=== PATIENT | male | born 1990 | race Caucasian/White ===

== ENCOUNTER 2017-06-06 19:08 | Emergency (ER) | payer BC ==
--- NOTE | 2017-06-06 19:48 | EDM.PDOC ---
ED HPI GENERAL MEDICAL PROBLEM - General Chief Complaint: Laceration Stated Complaint: LACERATION LT THUMB Time Seen by Provider: 06/06/17 19:25 Source of Information: Reports: Patient History Limitations: Reports: No Limitations - History of Present Illness INITIAL COMMENTS - FREE TEXT/NARRATIVE: History of present illness: [27-year-old male comes in status post traumatic laceration to left thumb. Patient was using a saw to cut subflooring when he did a cross cut onto his left thumb almost severing the pad.] Review of systems: As per history of present illness and below otherwise all systems reviewed and negative. Past medical history: As per history of present illness and as reviewed below otherwise noncontributory. Surgical history: As per history of present illness and as reviewed below otherwise noncontributory. Social history: No reported history of drug or alcohol abuse. Family history: As per history of present illness and as reviewed below otherwise noncontributory. Physical exam: HEENT: Atraumatic, normocephalic, pupils reactive, negative for conjunctival pallor or scleral icterus, mucous membranes moist, throat clear, neck supple, nontender, trachea midline. Lungs: Clear to auscultation, breath sounds equal bilaterally, chest nontender. Heart: S1S2, regular, negative for clicks, rubs, or JVD. Abdomen: Soft, nondistended, nontender. Negative for masses or hepatosplenomegaly. Negative for costovertebral tenderness. Pelvis: Stable nontender. Genitourinary: Deferred. Rectal: Deferred. Extremities: Left hand with thumb laceration. Near circumferential flap of pad region of thumb. Neurovascular intact. Patient with good pulses and good blood flow to thumb minimal amount of duskiness of pad Neuro: Awake, alert, oriented. Cranial nerves II through XII unremarkable. Cerebellum unremarkable. Motor and sensory unremarkable throughout. Exam nonfocal. Procedure note: Thumb cleaned in the usual fashion with 1% lidocaine injected approximately 3 ml. into the left thumb with good anesthesia achieved. 7 interrupted sutures using 4.0 Ethilon to approximate the edges with good hemostasis obtained. Hand cleaned, bacitracin applied with subsequent Vaseline gauze and then Telfa with tube gauze over the thumb. Biotics prescribed secondary to nature of injury Diagnostics: [X-ray of thumb] Therapeutics: [Lidocaine, Dilaudid, tetanus] Impression: [Thumb laceration] Plan: [Thumb laceration stabilized with a referral to hand surgery] Definitive disposition and diagnosis as appropriate pending reevaluation and review of above. left thumb Pain Score (Numeric/FACES): 9 - Related Data Allergies Allergy/AdvReac Type Severity Reaction Status Date / Time amoxicillin [Amoxicillin] Allergy unknown Verified 06/06/17 19:21 cefaclor [From Ceclor] Allergy unknown Verified 06/06/17 19:21 Penicillins Allergy unknown Verified 06/06/17 19:21 Home Meds: Home Meds . [No Known Home Meds] 09/03/13 [History] Past Medical History HEENT History: Reports: None Cardiovascular History: Reports: None Respiratory History: Reports: None Gastrointestinal History: Reports: None Genitourinary History: Reports: None Musculoskeletal History: Reports: None Neurological History: Reports: None Psychiatric History: Reports: None Endocrine/Metabolic History: Reports: None Hematologic History: Reports: None Immunologic History: Reports: None Oncologic (Cancer) History: Reports: None Dermatologic History: Reports: None - Infectious Disease History Infectious Disease History: Reports: None - Past Surgical History Head Surgeries/Procedures: Reports: None HEENT Surgical History: Reports: Adenoidectomy, Tonsillectomy Social & Family History - Family History Family Medical History: Noncontributory - Tobacco Use Smoking Status *Q: Never Smoker - Caffeine Use Caffeine Use: Reports: Soda - Alcohol Use Days Per Week of Alcohol Use: 0 - Recreational Drug Use Recreational Drug Use: No ED ROS GENERAL - Review of Systems Review Of Systems: See Below (History of present illness) ED EXAM, SKIN/RASH Exam: See Below (See history of present illness) Course - Vital Signs Last Recorded V/S: Last Vital Signs Temp 36.9 C 06/06/17 19:21 Pulse 78 06/06/17 19:21 Resp 18 06/06/17 19:21 BP 151/70 H 06/06/17 19:21 Pulse Ox 98 06/06/17 19:21 - Orders/Labs/Meds Orders: Active Orders 24 hr Category Date Time Status Vaccines to be Administered [RC] PER UNIT ROUTINE Care 06/06/17 20:35 Active Fingers Thumb Lt FA [CR] Stat Exams 06/06/17 20:29 Ordered Meds: Medications Discontinued Medications Generic Name Dose Route Start Last Admin Trade Name Freq PRN Reason Stop Dose Admin Diphtheria/Tetanus/Acell Pertussis 0.5 ml 06/06/17 20:35 Adacel IM 06/06/17 20:36 .ONCE ONE Hydromorphone HCl 2 mg 06/06/17 21:07 Dilaudid IM 06/06/17 21:08 ONETIME ONE Lidocaine/Epinephrine 20 ml 06/06/17 21:10 Xylocaine 1% With Epinephrine 1:100,000 INJECT 06/06/17 21:11 ONETIME ONE Departure - Departure Time of Disposition: 22:03 Disposition: Home, Self-Care 01 Condition: Good Clinical Impression: Laceration of thumb - Discharge Information Instructions: Laceration Care, Adult, [id number], Stitches, Sriram, or Adhesive Wound Closure, [id number] Referrals: Jose Grady MD [Primary Care Provider] - Forms: ED Department Discharge Additional Instructions: The following information is given to patients seen in the emergency department who are being discharged to home. This information is to outline your options for follow-up care. We provide all patients seen in our emergency department with a follow-up referral. The need for follow-up, as well as the timing and circumstances, are variable depending upon the specifics of your emergency department visit. If you don't have a primary care physician on staff, we will provide you with a referral. We always advise you to contact your personal physician following an emergency department visit to inform them of the circumstance of the visit and for follow-up with them and/or the need for any referrals to a consulting specialist. The emergency department will also refer you to a specialist when appropriate. This referral assures that you have the opportunity for follow-up care with a specialist. All of these measure are taken in an effort to provide you with optimal care, which includes your follow-up. Under all circumstances we always encourage you to contact your private physician who remains a resource for coordinating your care. When calling for follow-up care, please make the office aware that this follow-up is from your recent emergency room visit. If for any reason you are refused follow-up, please contact the [facility] Emergency Department at and asked to speak to the emergency department charge nurse. Take antibiotics as directed Keep hand clean and dry as discussed Follow-up with hand surgeon as discussed [facility] - [facility] Professional Building [address] [place] [address], [address] [place] [address]
[2017-06-06] MEDS ORDERED: Diphtheria,Pertussis(Acell),Tetanus Vaccine 0.5 ML Syringe IM ONE (20:35)
[2017-06-06] MEDS ORDERED: HYDROmorphone 2 MG/ML SDV IM ONE (20:49)
[2017-06-06] MEDS ORDERED: HYDROmorphone 1 MG/ML Syringe IM ONE (21:07)
[2017-06-06] MEDS ORDERED: Lidocaine 1% with EPINEPHrine 1:100,000 20 ML MDV INJECT ONE (21:10)
[2017-06-06] MEDS ORDERED: Lidocaine 1% 20 ML MDV ONE (21:17)
[2017-06-06] MEDS ORDERED: Lidocaine 1% 20 ML MDV INJECT ONE (21:21)
[2017-06-06] MEDS ORDERED: Bacitracin Oint 1 GM U/D Packet TOP ONE (21:56)
--- NOTE | 2017-06-08 10:46 | CR ---
EXAM DATE: 06/06/17 PATIENT'S AGE: 27 Patient: JIM GONSALES Facility: [place], [place] Site . Site : [id number] Study: XRay Extremity Left [id number] thumb-06/06/2017 8:56:45 PM Ordering Physician: Doctor Mendosa Final Report: INDICATION: Trauma to the left thumb. TECHNIQUE: Finger radiographs 3 views COMPARISON: None FINDINGS: Overlying bandage material at distal margin of left 1st digit. No radiopaque soft tissue foreign body. Alignment within normal limits. No fracture identified. Apparent soft tissue injury at the distal margin of the left thumb. IMPRESSION: 1. No acute osseous injuries are identified. 2. Soft tissue injury, distal margin of left thumb. Dictated by Lino Cao MD @ 06/06/2017 9:10:57 PM Dictated by: Lino Cao MD @ 06/06/2017 21:11:00 (Electronic Signature) Report Signed by Proxy. BERTA
== END 2017-06-06 22:19 | disposition home or self-care (01) ==
LOC: MW.ED 19:08
DX: S61.012A Laceration without foreign body of left thumb without damage to nail, initial encounter (principal); W45.8XXA Other foreign body or object entering through skin, initial encounter; Z23 Encounter for immunization; Z88.1 Allergy status to other antibiotic agents
CPT/HCPCS: 12001; 12002; 73140; 90471; 90715; 96372; 99283; J1170; 99282

== ENCOUNTER 2019-09-24 16:34 | Emergency (ER) | payer BC ==
--- NOTE | 2019-09-24 17:08 | EDM.PDOC ---
ED HPI GENERAL MEDICAL PROBLEM - General Chief Complaint: Upper Extremity Injury/Pain Stated Complaint: NAIL LODGED INTO LEFT WRIST Time Seen by Provider: 09/24/19 16:50 Source of Information: Reports: Patient History Limitations: Reports: No Limitations - History of Present Illness INITIAL COMMENTS - FREE TEXT/NARRATIVE: This 29 year old male states while working he accidentally shot a nail into his left wrist area. He states that the nail was a flexible 18 gauge blunt tip that was shot through his left wrist area under pressure. He complains of pain of the left wrist in the inner side (radial side) with associated numbness in his thumb, index finger and middle finger. He states that he can only move his fingers a little bit. He states that this happen approximately 30 prior to arrival to the ED. His last meal was cheese crackers one hour ago. He states that he has an allergy to penicillin type medications but does not recall the reaction that he has. left wrist Pain Score (Numeric/FACES): 3 - Related Data Allergies Allergy/AdvReac Type Severity Reaction Status Date / Time amoxicillin [Amoxicillin] Allergy unknown Verified 09/24/19 16:46 cefaclor [From Ceclor] Allergy unknown Verified 09/24/19 16:46 Penicillins Allergy unknown Verified 09/24/19 16:46 Home Meds: Home Meds Pantoprazole [ProTONIX] 1 dose PO ASDIRECTED 09/24/19 [History] Past Medical History HEENT History: Reports: None Cardiovascular History: Reports: None Respiratory History: Reports: None Gastrointestinal History: Reports: None Genitourinary History: Reports: None Musculoskeletal History: Reports: None Neurological History: Reports: None Psychiatric History: Reports: None Endocrine/Metabolic History: Reports: None Hematologic History: Reports: None Immunologic History: Reports: None Oncologic (Cancer) History: Reports: None Dermatologic History: Reports: None - Infectious Disease History Infectious Disease History: Reports: Chicken Pox - Past Surgical History Head Surgeries/Procedures: Reports: None HEENT Surgical History: Reports: Adenoidectomy, Tonsillectomy Cardiovascular Surgical History: Reports: None Respiratory Surgical History: Reports: None GI Surgical History: Reports: None Male Surgical History: Reports: None Endocrine Surgical History: Reports: None Neurological Surgical History: Reports: None Musculoskeletal Surgical History: Reports: None Oncologic Surgical History: Reports: None Dermatological Surgical History: Reports: None Social & Family History - Family History Family Medical History: Noncontributory - Tobacco Use Smoking Status *Q: Never Smoker Second Hand Smoke Exposure: No - Caffeine Use Caffeine Use: Reports: Soda - Recreational Drug Use Recreational Drug Use: No Review of Systems - Review of Systems Review Of Systems: See Below Constitutional: Reports: No Symptoms Eyes: Reports: No Symptoms Ears: Reports: No Symptoms Nose: Reports: No Symptoms Mouth/Throat: Reports: No Symptoms Respiratory: Reports: No Symptoms Cardiovascular: Reports: No Symptoms GI/Abdominal: Reports: No Symptoms Genitourinary: Reports: No Symptoms Musculoskeletal: Reports: Hand Pain (left hand), Other (pain in left wrist area with numbness and weakness of his thumb through middle finger.) Skin: Reports: No Symptoms Neurological: Reports: Other (as noted above.) ED EXAM, GENERAL - Physical Exam Exam: See Below Exam Limited By: No Limitations General Appearance: Alert, WD/WN, No Apparent Distress Head: Atraumatic, Normocephalic Neck: Normal Inspection, Supple Respiratory/Chest: No Respiratory Distress, Lungs Clear, Normal Breath Sounds Cardiovascular: Normal Peripheral Pulses, No Edema, No Murmur, Tachycardia Peripheral Pulses: 3+: Dorsalis Pedis (L), 4+: Radial (L), Radial (R), Dorsalis Pedis (R) GI/Abdominal: Normal Bowel Sounds, Soft, Non-Tender (Male) Exam: Deferred Rectal (Males) Exam: Deferred Back Exam: Normal Inspection, Full Range of Motion Extremities: Normal Capillary Refill, Other (There is a small pinpoint wound just lateral to the radial artery. It appears to be a foreign body consistent with a imbeded nail. Excellent capillary refill. Decrease sensation along the entire thumb, left middle finger and the radial side of the index finger. The patient cannot open his hand fully which could be due to pain or nerve injury.) . No: Pallor, Redness Neurological: Alert, Oriented (times 4), CN II-XII Intact, Normal Cognition, Normal Reflexes, No Motor/Sensory Deficits Psychiatric: Normal Affect, Normal Mood Skin Exam: Warm, Dry, Intact, Normal Color, No Rash Lymphatic: No Adenopathy Course - Vital Signs Text/Narrative:: I talked with Dr. Wallace at approximately 7:58PM. He has accepted the patient in transfer. The patient is to go to the ED at [facility] and let the ED know that Dr. Wallace will see him in consult and possible surgery. The patient is aware of the transfer and agrees. His will drive him over to [place] after he receives his Clindamycin 600mg IV. Last Recorded V/S: Last Vital Signs Temp 95.7 F L 09/24/19 16:47 Pulse 121 H 09/24/19 16:47 Resp 18 09/24/19 16:47 BP 160/105 H 09/24/19 16:47 Pulse Ox 97 09/24/19 16:47 Departure - Departure Time of Disposition: 20:16 Disposition: DC/Tfer to [facility] 02 Condition: Good Clinical Impression: Penetrating foreign body of skin of left wrist Qualifiers: Encounter type: initial encounter Qualified Code(s): S60.852A - Superficial foreign body of left wrist, initial encounter - Discharge Information *PRESCRIPTION DRUG MONITORING PROGRAM REVIEWED*: Yes *COPY OF PRESCRIPTION DRUG MONITORING REPORT IN PATIENT KAUSHIK: Yes Instructions: Cast or Splint Care, Adult, [id number] Referrals: Jose Grady MD [Primary Care Provider] - Forms: ED Department Discharge Sepsis Event Note - Evaluation Sepsis Screening Result: No Definite Risk - Focused Exam Vital Signs: Vital Signs Temp Pulse Resp BP Pulse Ox 09/24/19 16:47 95.7 F L 121 H 18 160/105 H 97 Date Exam was Performed: 09/24/19 Time Exam was Performed: 19:16
--- NOTE | 2019-09-24 17:49 | CR ---
Left forearm: 2 views left forearm were obtained. Comparison: No previous forearm study. Metallic nail is projected within the left wrist. No acute fracture or other abnormality is appreciated. Impression: 1. Metallic nail is projected within the left wrist. 2. Left forearm study is otherwise unremarkable. Diagnostic code #3 This report was dictated in MDT
--- NOTE | 2019-09-24 17:49 | CR ---
Left wrist: 3 views left wrist were obtained. Comparison: No prior wrist exam is available. Metallic nail is noted within the wrist. No discrete fracture is appreciated. Soft tissue swelling is seen. No additional abnormality is noted. Impression: 1. Metallic nail within the wrist. No discrete fracture is appreciated. Diagnostic code #3 This report was dictated in MDT
[2019-09-24] MEDS ORDERED: Clindamycin Phosphate in D5W 600 MG in Premix Bag 1 BAG IV ONE ×2 (19:47)
== END 2019-09-24 20:57 ==
LOC: MW.ED 16:34
DX: S60.852A Superficial foreign body of left wrist, initial encounter (principal); Z88.1 Allergy status to other antibiotic agents; Z88.0 Allergy status to penicillin; W45.8XXA Other foreign body or object entering through skin, initial encounter
CPT/HCPCS: 29125; 73090; 73110; 96365; 99284; S0077; 99283; J3490

== ENCOUNTER 2023-09-23 08:00 | Day surgery (SDC) | payer OTHER ==
[~2023-09-23 08:00] MED LIST: Lidocaine 2% 5 ML SDV ONE; Ropivacaine 0.5% 5 MG/ML 30 ML SDV ONE; ceFAZolin 2 GM in Sodium Chloride 0.9% 50 ML IV ONE
[2023-09-23] MEDS ORDERED: Midazolam 1 MG/ML 2 ML SDV ONE (08:14)
[2023-09-23] MEDS: Lactated Ringers 1,000 ML IV SCH (08:21)
[2023-09-23] MEDS ORDERED: Albuterol 0.083% 2.5 MG/3 ML Neb Soln NEB PRN (08:33)
[2023-09-23] MEDS ORDERED: droPERidol 5 MG/2 ML SDV IVPUSH PRN (08:33)
[2023-09-23] MEDS ORDERED: Morphine 2 MG/ML SYRINGE IVPUSH PRN (08:33)
[2023-09-23] MEDS ORDERED: HYDROmorphone 1 MG/ML Syringe IVPUSH PRN (08:33)
[2023-09-23] MEDS ORDERED: fentaNYL 50 MCG/ML SDV IVPUSH PRN (08:33)
[2023-09-23] MEDS ORDERED: Naloxone 0.4 MG/ML SDV IVPUSH PRN (08:33)
[2023-09-23] MEDS ORDERED: Metoclopramide 10 MG/2 ML SDV IVPUSH PRN (08:33)
[2023-09-23] MEDS ORDERED: Ondansetron 4 MG/2 ML SDV IVPUSH PRN (08:33)
[2023-09-23] MEDS ORDERED: Bupivacaine 0.25% 30 ML SDV ONE (08:51)
[2023-09-23] MEDS ORDERED: Ondansetron 4 MG/2 ML SDV ONE (08:54)
[2023-09-23] MEDS ORDERED: propofoL 50 ML ONE (08:54)
[2023-09-23] MEDS ORDERED: ceFAZolin 2 GM Vial ONE (09:04)
[2023-09-23] MEDS ORDERED: Ketorolac 30 MG/ML SDV ONE (09:43)
== END 2023-09-23 10:45 | disposition home or self-care (01) ==
LOC: MW.SDS 08:00
PROVIDERS: ATTEND Orthopaedic Surgery
DX: G56.01 Carpal tunnel syndrome, right upper limb (principal); J20.9 Acute bronchitis, unspecified; R53.83 Other fatigue; K21.9 Gastro-esophageal reflux disease without esophagitis; K58.9 Irritable bowel syndrome, unspecified; Z90.89 Acquired absence of other organs; Z98.52 Vasectomy status; Z88.1 Allergy status to other antibiotic agents; Z88.8 Allergy status to other drugs, medicaments and biological substances; Z88.0 Allergy status to penicillin; Z90.49 Acquired absence of other specified parts of digestive tract; Z79.899 Other long term (current) drug therapy
CPT/HCPCS: 64721; J0665; J0690; J1885; J2250; J2405; J2704; J2795; J7120; J3490

== ENCOUNTER 2024-08-22 07:49 | Emergency (ER) | payer OTHER ==
[2024-08-22] MEDS: Sodium Chloride 0.9% 1,000 ML IV ONE (08:15)
[2024-08-22] MEDS: Ondansetron 4 MG/2 ML SDV IVPUSH ONE (08:15)
[2024-08-22] MEDS: Ketorolac 30 MG/ML SDV IVPUSH ONE (08:15)
[2024-08-22 08:24] LABS: BASOPHILS ABSOLUTE AUTO 0.04 K/uL (0.00-0.20); BASOPHILS PERCENT AUTO 0.5 % (0.0-1.0); EOSINOPHILS ABSOLUTE AUTO 0.07 K/uL (0.00-0.45); EOSINOPHILS PERCENT AUTO 0.8 % (0.0-6.0); HEMATOCRIT 44.9 % (42.0-52.0); HEMOGLOBIN 15.4 g/dL (14.0-18.0); IMMATURE GRAN ABSOLUTE AUTO 0.05 K/uL (0.00-0.05); IMMATURE GRAN PERCENT AUTO 0.6 % (0.0-0.4); LYMPHOCYTES ABSOLUTE AUTO 2.74 K/uL (1.00-4.80); LYMPHOCYTES PERCENT AUTO 31.2 % (24.0-44.0); MEAN CORPUSCULAR HGB CONC 34.3 g/dL (32.0-36.0); MEAN CORPUSCULAR VOLUME 90.5 fL (83.0-99.0); MEAN PLATELET VOLUME 10.1 fL (9.4-12.4); MONOCYTES ABSOLUTE AUTO 0.84 K/uL (0.00-0.80); MONOCYTES PERCENT AUTO 9.6 % (0.0-8.0); NEUTROPHILS ABSOLUTE AUTO 5.04 K/uL (1.80-7.70); NEUTROPHILS PERCENT AUTO 57.3 % (41.0-71.0); PLATELET COUNT,PLT 262 K/uL (150-400); RED BLOOD CELL COUNT 4.96 M/uL (4.52-5.90); WHITE BLOOD CELL COUNT,WBC 8.78 K/uL (3.9-11.3)
[2024-08-22 08:51] LABS: A/G RATIO 1.3 (0.9-1.6); BILIRUBIN TOTAL 0.8 mg/dL (0.2-1.0); CALCIUM 9.2 mg/dL (8.5-10.1); CREATININE 1.3 mg/dL (0.8-1.3); EST CRCL DRUG DOSING (CG) 83.67 mL/min; PROTEIN TOTAL,TP 7.2 g/dL (6.4-8.2)
[2024-08-22] MEDS: Morphine 4 MG/ML Syringe IVPUSH ONE (08:54)
[2024-08-22 09:19] LABS: APPEARANCE,URINE SLT CLOUDY; BILIRUBIN,URINE NEGATIVE (NEGATIVE); COLOR,URINE YELLOW; GLUCOSE,URINE NEGATIVE (NEGATIVE); KETONES,URINE TRACE mg/dL (NEGATIVE); LEUKOCYTE ESTERASE,URINE NEGATIVE (NEGATIVE); NITRITE,URINE NEGATIVE (NEGATIVE); OCCULT BLOOD,URINE LARGE (NEGATIVE); PROTEIN,URINE NEGATIVE (NEGATIVE); UROBILINOGEN,URINE 0.2 EU/dL (<2.0)
[2024-08-22 09:27] LABS: BACTERIA,URINE FEW (NEGATIVE); EPITHELIAL CELLS,URINE OCCASIONAL (NONE-FEW); RBC,URINE 20-30 (0-2/HPF); WBC,URINE 0-3 (0-5/HPF)
[2024-08-22] MEDS: Morphine 2 MG/ML SYRINGE IVPUSH ONE (09:36)
[2024-08-22] MEDS: Tamsulosin 0.4 MG Cap.ER PO ONE (09:36)
== END 2024-08-22 09:47 | disposition home or self-care (01) ==
LOC: MW.ED 07:49
DX: N13.2 Hydronephrosis with renal and ureteral calculous obstruction (principal); Z75.8 Other problems related to medical facilities and other health care; Z88.0 Allergy status to penicillin; Z88.1 Allergy status to other antibiotic agents; Z79.899 Other long term (current) drug therapy
CPT/HCPCS: 36415; 74176; 80053; 81001; 85025; 96361; 96374; 96375; 99284; A9270; J1885; J2270; J2405; J7030; 99283

== ENCOUNTER 2024-11-25 18:29 | Emergency (ER) | payer OTHER ==
[2024-11-25] MEDS: Ibuprofen 600 MG Tab PO ONE (19:08)
== END 2024-11-25 19:53 | disposition home or self-care (01) ==
LOC: MW.ED 18:29
DX: S50.01XA Contusion of right elbow, initial encounter (principal); Z75.3 Unavailability and inaccessibility of health-care facilities; Z88.0 Allergy status to penicillin; Z88.8 Allergy status to other drugs, medicaments and biological substances; Z79.899 Other long term (current) drug therapy; W22.8XXA Striking against or struck by other objects, initial encounter
CPT/HCPCS: 73080; 99283; A9270